=== PATIENT | male | born 1975 | race Caucasian/White ===

== ENCOUNTER → 2016-06-10 | Outpatient (CLI) | payer BC ==
[2016-06-10 19:21] LABS: Basophils % (A) 1 %; CH 31.4; CHCM 33.7; Eosinophils # (A) 0.1 k/uL (0-0.7); Eosinophils % (A) 1 %; HDW 2.45; HGB 14.4 gm/dL (13.0-17.5); Luc # (Auto) 0.11; Luc % (Auto) 3; Lymphocytes # (A) 1.4 k/uL (1.0-4.8); Lymphocytes % (A) 31 %; MCH 31.3 pg (25.0-35.0); MCHC 33.4 g/dL (31.0-37.0); MCV 93.7 fL (80.0-100.0); Mean Platelet Volume 8.4; Monocytes # (A) 0.4 k/uL (0-1.0); Monocytes % (A) 8 %; Neutrophils # (A) 2.5 k/uL (1.3-7.7); Neutrophils % (A) 57 %; RDW 13.1 % (11.5-15.5); WBC 4.4 k/uL (3.8-10.6); WBC (Perox) 4.43
[2016-06-10 19:43] LABS: ALT 60 U/L (21-72); AST 40 U/L (17-59); Alkaline Phosphatase 55 U/L (38-126); Anion Gap 9 mmol/L; Blood Urea Nitrogen 14 mg/dL (9-20); Calcium 9.7 mg/dL (8.4-10.2); Carbon Dioxide 31 mmol/L (22-30); Chloride 104 mmol/L (98-107); Cholesterol 191 mg/dL (<200); Glucose 90 mg/dL (74-99); HDL Cholesterol 40 mg/dL (40-60); Non-African American GFR(MDRD) >60 (>60 ml/min/1.73 sqM); Potassium 4.3 mmol/L (3.5-5.1); Sodium 144 mmol/L (137-145); Total Bilirubin 0.7 mg/dL (0.2-1.3); Total Protein 7.4 g/dL (6.3-8.2); Triglycerides 123 mg/dL (<150)
== END ==
LOC: MMGSC 10:13
PROVIDERS: ATTEND Family Medicine
DX: Z00.00 Encounter for general adult medical examination without abnormal findings (principal)
CPT/HCPCS: 36415; 80053; 80061; 84439; 84443; 85025

== ENCOUNTER → 2021-03-07 | Outpatient (CLI) | payer BC ==
--- NOTE | 2021-03-07 16:40 | CONS ---
CONSULTATION DATE OF SERVICE: 03/07/2021 45-year-old gentleman has [facility] for possible obstructive sleep apnea-hypopnea syndrome. HISTORY OF PRESENT ILLNESS SLEEP-WAKE EVALUATION: SLEEP SCHEDULE: Patient usual sleep schedule from 9:00 pm to 4:00 am on weekdays and from 9:00 pm to 5 or 6:00 am on weekends. FALLING ASLEEP: No problems with falling asleep. No TV in bedroom. He usually sleeps on the stomach position. He has very loud snoring. Home sleep apnea test 5 years ago was borderline. He has episodes of stopped breathing during sleep and he wakes up from sleep with gasping for air and choking up to 15 times during the night with up to one episode of nocturia. During that night, he has had twitching movements of his legs. In the morning, the patient wakes up tired. Falling asleep during the day. Worry about his sleep. [place] Sleepiness Scale significantly increased to 16. Although he does not take any naps. No history of hypnagogic hallucinations, sleep paralysis or cataplexy. PAST MEDICAL HISTORY: Positive for migraines. PAST SURGICAL HISTORY: Back surgery. FAMILY HISTORY: Migraines. SOCIAL HISTORY: Negative for smoking, alcohol consumption occasional. MEDICATIONS: Motrin, vitamin D3. REVIEW OF SYSTEMS: Multiple awakenings from sleep. Significant excessive daytime sleepiness. PHYSICAL EXAMINATION: GENERAL: gentleman without distress. BP 132/83, HR 65, RR 14, height 6 and 2, weight 236.4, body mass index 32, temperature 97.5, oxygen saturation at room air 99%. Oropharynx: Extremely low position of soft palate, Mallampati 4. Neck is 16-3/4 inches in circumference. Neck: Supple, no JVD. Thyroid is not palpable. LUNGS: Clear to percussion and to auscultation. Good air exchange. No wheezing or rhonchi. HEART: S1, S2 regular. No murmurs, gallops, or rubs. ABDOMEN: Soft and nontender. Bowel sounds are present. No organomegaly appreciated. EXTREMITIES: No clubbing or cyanosis. 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 Cranial nerves 2 to 7 intact. There is no fasciculation or atrophy. noted. No focal deficits observed. IMPRESSION: 1. Loud snoring, multiple awakenings from sleep up to 15 times with episodes of gasping for air and choking and witnessed sleep apneas. Extremely low position of soft palate, Mallampati 4, sleepiness with high [place] Sleepiness Scale of 16, obstructive sleep apnea-hypopnea syndrome. 2. Sleepiness by [place] Sleepiness Scale of 16 dictate necessity to include hypersomnia and narcolepsy in differential diagnosis. 3. History of migraines. 4. Obesity in mild range, BMI 32. 5. Status post back surgery. 6. History of twitching legs during the night, possibly periodic limb movements. PLAN: 1. Home sleep apnea test for evaluation of patient's breathing during sleep. 2. Following plan after reviewing results of the sleep study. 3. Sleep hygiene with regular time in bed for at least 7-1/2 to 8 hours. 4. No driving if feeling sleepiness. 5. Following plan after reviewing results of home sleep apnea test. Thank you very much for referring this patient for consultation. Sincerely, Javier Smith MD, PhD, FAASM Diplomat of [employer] Sleep Medicine [employer] of [place] [employer] [facility] [place] MMODL / JIGARN: [id number] /
== END ==
LOC: SLEEP 13:56
PROVIDERS: ATTEND Internal Medicine
DX: G47.33 Obstructive sleep apnea (adult) (pediatric) (principal); E66.9 Obesity, unspecified; G43.909 Migraine, unspecified, not intractable, without status migrainosus; Z68.32 Body mass index [BMI] 32.0-32.9, adult; Z86.69 Personal history of other diseases of the nervous system and sense organs; Z98.890 Other specified postprocedural states
CPT/HCPCS: 99211